=== PATIENT | male | born 1945 | race Caucasian/White ===

== ENCOUNTER 2019-07-29 05:45 | Day surgery (SDC) | payer MEDICARE, OTHER ==
[2019-07-26 11:30] LABS: BASOPHILS % (AUTO) 0.7 % (0-1); EOSINOPHILS # (AUTO) 0.2 X10'3 (0-0.9); EOSINOPHILS % (AUTO) 3.2 % (0-6); HEMATOCRIT 43.3 % (42.0-52.0); HEMOGLOBIN 14.8 g/dl (14.0-17.9); LYMPHOCYTES # (AUTO) 2.1 X10'3 (1.1-4.8); LYMPHOCYTES % (AUTO) 38.8 % (21-51); MEAN CORPUSCULAR HEMOGLOBIN 31.8 PG (27.0-31.0); MEAN CORPUSCULAR HGB CONC 34.3 g/dL (33.0-36.5); MEAN CORPUSCULAR VOLUME 92.8 FL (78-98); MEAN PLATELET VOLUME 7.7 FL (7.4-10.4); MONOCYTES # (AUTO) 0.6 X10'3 (0-0.9); MONOCYTES % (AUTO) 10.6 % (2-12); NEUTROPHILS # (AUTO) 2.6 X10'3 (1.8-7.7); NEUTROPHILS % (AUTO) 46.7 % (42-75); PLATELET COUNT 267 X10'3 (140-440); RED BLOOD COUNT 4.67 X10'6 (4.70-6.10); RED CELL DISTRIBUTION WIDTH 13.1 % (11.5-14.5); WHITE BLOOD COUNT 5.5 X10'3 (4.5-11.0)
[2019-07-26 11:41] LABS: ALBUMIN 3.8 G/DL (3.4-5.0); ANION GAP 7 (8-16); BLOOD UREA NITROGEN 14 MG/DL (7-18); BUN/CREATININE RATIO 13.6 (5.4-32.0); CALCIUM 9.1 MG/DL (8.5-10.1); CHLORIDE 106 MMOL/L (99-107); CREATININE 1.03 MG/DL (0.60-1.10); GLUCOSE 106 MG/DL (70-104); POTASSIUM 4.5 MMOL/L (3.5-5.1); SODIUM 141 MMOL/L (135-145); TOTAL CARBON DIOXIDE 27.7 MMOL/L (24-32); eGFR 71 ML/MIN
[2019-07-26 11:42] LABS: PARTIAL THROMBOPLASTIN TIME 27 SECONDS (22-32)
[2019-07-29] VITALS (15 sets, daily range): BP systolic 101–154; BP diastolic 55–95
[~2019-07-29] VITALS: Ht 170.2 cm; Wt 97.0 kg
[2019-07-29] MEDS ORDERED: ASPI81TA30 PO (06:34)
[2019-07-29] MEDS ORDERED: METO-539 PO (06:34)
[2019-07-29] MEDS ORDERED: SALMON PO (06:34)
[2019-07-29] MEDS ORDERED: LOVA20TA2 PO (06:34)
[2019-07-29] MEDS ORDERED: LOSA1TAB36 PO (06:34)
[2019-07-29] MEDS ORDERED: fentaNYL/PF 50MCG/1 ML 2ML syringe ONE (07:37)
[2019-07-29] MEDS ORDERED: midazolam 2 mg/2 ml injection ONE (07:37)
[2019-07-29] MEDS ORDERED: LIDOcaine 1% (10mg/ml)w/preservative injection 20ml MDV ONE (07:37)
[2019-07-29] MEDS ORDERED: iohexol 350 MG/ML 50ML vial IV ONE (07:37)
[2019-07-29] MEDS ORDERED: iohexol 350MG/ML 100ml bottle IV ONE ×4 (07:37→09:29)
[2019-07-29] MEDS ORDERED: heparin 1,000unit/ml 10ml vial 10 ML ONE (07:37)
[2019-07-29] MEDS ORDERED: nitroGLYCERIN-Tridil 50MG/D5W 250 ML IV ONE (07:37)
[2019-07-29] MEDS ORDERED: heparin 25,000 UNIT/250ml bag 250 ML IV ONE (08:37)
[2019-07-29] MEDS ORDERED: verapamil 2.5 mg/ml inj IV ONE (09:46)
[2019-07-29] MEDS ORDERED: clopidogrel 300mg tablet ONE (09:52)
--- NOTE | 2019-07-29 10:30 | NUR ---
Patient back from [facility] laboratory. Awake and alert. vss. Sheath in right groin, no bleeding or hematoma. Waveform good when transduced. Pt c/o of mild chest discomfort, declines pain medications. Heparin gtt running at 10 units/hr to left wrist.
[2019-07-29] MEDS ORDERED: aspirin 81mg tablet.DR PO SCH (11:24)
[2019-07-29] MEDS ORDERED: cyclobenzaprine 10mg tablet PO PRN (11:25)
[2019-07-29] MEDS ORDERED: HYDROcodone/acetaminophen 10/325mg tab PO PRN ×2 (11:25)
[2019-07-29] MEDS ORDERED: proCHLORperazine 10 MG/2 ml inj IV PRN (11:25)
[2019-07-29] MEDS ORDERED: CLOPIDOGREL BISULFATE 300MG TAB PO ONE (11:25)
[2019-07-29] MEDS ORDERED: normal saline 1000ml 1,000 ML IV SCH (11:25)
[2019-07-29] MEDS ORDERED: acetaminophen 325mg tablet PO PRN (11:25)
[2019-07-29] MEDS ORDERED: magnesium hydroxide 30ml (MOM) UD suspension PO PRN (11:25)
[2019-07-29] MEDS ORDERED: OXAZEpam 15mg capsule PO PRN (11:25)
[2019-07-29] MEDS ORDERED: heparin 25,000 UNIT/250ml bag 250 ML IV SCH (11:26)
[2019-07-29] MEDS ORDERED: heparin 10,000 units/1 ML INJ IV PRN (11:30)
[2019-07-29] MEDS ORDERED: heparin 10,000 units/1 ML INJ IV ONE (11:30)
[2019-07-29] MEDS ORDERED: docusate sod 100mg capsule PO SCH (20:00)
[2019-07-30] MEDS ORDERED: clopidogrel 75mg tablet PO SCH (08:00)
== END 2019-07-29 20:30 | disposition home or self-care (01) ==
LOC: SSTAY O 05:45
PROVIDERS: ATTEND Internal Medicine Cardiovascular Disease
DX: R07.89 Other chest pain (principal); R53.83 Other fatigue; I25.10 Atherosclerotic heart disease of native coronary artery without angina pectoris; E78.49 Other hyperlipidemia; I10 Essential (primary) hypertension; Z95.1 Presence of aortocoronary bypass graft; Z79.899 Other long term (current) drug therapy; Z79.82 Long term (current) use of aspirin
CPT/HCPCS: 36415; 80048; 85025; 85347; 85610; 85730; 93005; 93459; 99152; 99153; C1725; C1769; C1874; C9600; C9604; J1644; J2001; J2250; J3010; J7030; J7040; Q9967; A4620; A6258; A6449; C1760; J3490

== ENCOUNTER 2020-12-02 06:06 | Day surgery (SDC) | payer MEDICARE, OTHER ==
[2020-12-01 11:19] LABS: BASOPHILS % (AUTO) 0.7 % (0-1); EOSINOPHILS # (AUTO) 0.3 X10'3 (0-0.9); HEMATOCRIT 44.5 % (42.0-52.0); HEMOGLOBIN 14.8 g/dl (14.0-17.9); LYMPHOCYTES # (AUTO) 1.9 X10'3 (1.1-4.8); LYMPHOCYTES % (AUTO) 36.5 % (21-51); MEAN CORPUSCULAR HEMOGLOBIN 31.2 PG (27.0-31.0); MEAN CORPUSCULAR HGB CONC 33.2 g/dL (33.0-36.5); MEAN CORPUSCULAR VOLUME 94.1 FL (78-98); MEAN PLATELET VOLUME 7.4 FL (7.4-10.4); MONOCYTES # (AUTO) 0.7 X10'3 (0-0.9); MONOCYTES % (AUTO) 13.2 % (2-12); NEUTROPHILS # (AUTO) 2.3 X10'3 (1.8-7.7); NEUTROPHILS % (AUTO) 44.6 % (42-75); PLATELET COUNT 269 X10'3 (140-440); RED BLOOD COUNT 4.73 X10'6 (4.70-6.10); RED CELL DISTRIBUTION WIDTH 13.2 % (11.5-14.5); WHITE BLOOD COUNT 5.1 X10'3 (4.5-11.0)
[2020-12-01 11:32] LABS: ALBUMIN 3.5 G/DL (3.4-5.0); ANION GAP 8 (8-16); BLOOD UREA NITROGEN 18 MG/DL (7-18); BUN/CREATININE RATIO 20.2 (5.4-32.0); CALCIUM 8.9 MG/DL (8.5-10.1); CHLORIDE 108 MMOL/L (99-107); CREATININE 0.89 MG/DL (0.60-1.10); GLUCOSE 103 MG/DL (70-104); POTASSIUM 4.2 MMOL/L (3.5-5.1); SODIUM 142 MMOL/L (135-145); TOTAL CARBON DIOXIDE 26.2 MMOL/L (24-32); eGFR 83 ML/MIN
[2020-12-01 11:34] LABS: PARTIAL THROMBOPLASTIN TIME 27 SECONDS (22-32)
[2020-12-02] VITALS (13 sets, daily range): BP systolic 111–166; BP diastolic 62–96
[~2020-12-02] VITALS: Ht 170.2 cm; Wt 96.7 kg
[~2020-12-02 06:06] MED LIST: ASPI81TA30 PO; LOSA1TAB36 PO; LOVA20TA2 PO; METO-539 PO; SALMON PO
[2020-12-02] MEDS ORDERED: CLOP75TA34 PO (06:30)
[2020-12-02] MEDS ORDERED: LOSA50TA64 PO (06:30)
[2020-12-02] MEDS ORDERED: ATOR80TA PO (06:30)
[2020-12-02] MEDS ORDERED: LORazepam 0.5 MG tablet PO PRN (06:40)
[2020-12-02] MEDS ORDERED: diphenhydrAMINE 25mg capsule PO PRN (06:40)
[2020-12-02] MEDS ORDERED: normal saline 1,000 ML IV SCH (07:10)
[2020-12-02] MEDS ORDERED: LIDOcaine 1% (10mg/ml)w/preservative injection 20ml MDV ONE (07:29)
[2020-12-02] MEDS ORDERED: nitroGLYCERIN-Tridil 50MG/D5W 250 ML IV ONE (07:29)
[2020-12-02] MEDS ORDERED: midazolam 1 mg/ML 2ml injection ONE (07:29)
[2020-12-02] MEDS ORDERED: iohexol 350 MG/ML 50ML vial IV ONE (07:29)
[2020-12-02] MEDS ORDERED: fentaNYL/PF 50MCG/1 ML 2ML syringe ONE (07:29)
[2020-12-02] MEDS ORDERED: iohexol 350MG/ML 100ml bottle IV ONE ×2 (07:29→08:24)
[2020-12-02] MEDS ORDERED: heparin 1,000unit/ml 10ml vial 10 ML ONE (07:29)
[2020-12-02] MEDS ORDERED: heparin 25,000 UNIT/250ml bag 250 ML IV ONE (08:33)
[2020-12-02] MEDS ORDERED: clopidogrel 300mg tablet ONE (09:09)
[2020-12-02] MEDS ORDERED: normal saline 1,000 ML IV ONE (09:48)
[2020-12-02] MEDS ORDERED: HYDROcodone/acetaminophen 5mg/325mg tablet PO PRN (09:55)
[2020-12-02] MEDS ORDERED: HYDROcodone/acetaminophen 10/325mg tab PO PRN (09:55)
--- NOTE | 2020-12-02 12:10 | NUR ---
Pt voided 250ml yellow, clear
[2020-12-02] MEDS ORDERED: ondansetron/PF 4mg/2ml inj IV PRN (13:45)
--- NOTE | 2020-12-02 14:00 | NUR ---
Pt complaint of nausea. Pt repositioned and contacted MD for zofran order. Medication administered as ordered.
[2020-12-02] MEDS ORDERED: normal saline 1000ml 1,000 ML IV ONE (14:05)
[2020-12-02] MEDS ORDERED: proCHLORperazine 10 MG/2 ml inj IV PRN (14:10)
--- NOTE | 2020-12-02 15:58 | NUR ---
Pt voided 350 ml yellow, clear
[2020-12-03] MEDS ORDERED: clopidogrel 75mg tablet PO SCH (08:00)
== END 2020-12-02 18:10 | disposition home or self-care (01) ==
LOC: SSTAY O 06:06
PROVIDERS: ATTEND Internal Medicine Cardiovascular Disease
DX: I25.810 Atherosclerosis of coronary artery bypass graft(s) without angina pectoris (principal); I10 Essential (primary) hypertension; E78.5 Hyperlipidemia, unspecified; Z95.5 Presence of coronary angioplasty implant and graft
CPT/HCPCS: 36415; 76937; 80048; 85025; 85347; 85610; 85730; 93005; 93459; 93567; 99152; 99153; C1725; C1751; C1760; C1769; C1874; C9600; J0780; J1644; J2001; J2250; J2405; J3010; J7030; J7040; Q0163; Q9967; A4620; A6258; J3490

== ENCOUNTER 2020-12-04 13:33 | Emergency (ER) | payer MEDICARE, OTHER ==
[~2020-12-04] VITALS: Ht 170.2 cm; Wt 95.0 kg
[~2020-12-04 13:33] MED LIST changes: +ATOR80TA PO; +CLOP75TA34 PO; -LOSA1TAB36 PO; +LOSA50TA64 PO; -LOVA20TA2 PO
[2020-12-04 17:05] VITALS: BP 139/74
== END 2020-12-04 17:06 | disposition home or self-care (01) ==
LOC: ER 13:34
DX: S30.1XXA Contusion of abdominal wall, initial encounter (principal); I25.10 Atherosclerotic heart disease of native coronary artery without angina pectoris; Z79.82 Long term (current) use of aspirin; Z79.899 Other long term (current) drug therapy; X58.XXXA Exposure to other specified factors, initial encounter; Y93.89 Activity, other specified; Y92.89 Other specified places as the place of occurrence of the external cause; Y99.8 Other external cause status
CPT/HCPCS: 93926; 99284

== ENCOUNTER 2022-01-26 08:24 | Day surgery (SDC) | payer MEDICARE, OTHER ==
[2022-01-25 11:22] LABS: BASOPHILS % (AUTO) 0.6 % (0-1); EOSINOPHILS # (AUTO) 0.3 X10'3 (0-0.9); EOSINOPHILS % (AUTO) 5.7 % (0-6); HEMOGLOBIN 14.4 g/dl (14.0-17.9); LYMPHOCYTES # (AUTO) 1.6 X10'3 (1.1-4.8); LYMPHOCYTES % (AUTO) 28.7 % (21-51); MEAN CORPUSCULAR HGB CONC 33.5 g/dL (33.0-36.5); MEAN CORPUSCULAR VOLUME 92.5 FL (78-98); MEAN PLATELET VOLUME 8.1 FL (7.4-10.4); MONOCYTES # (AUTO) 0.6 X10'3 (0-0.9); MONOCYTES % (AUTO) 11.9 % (2-12); NEUTROPHILS # (AUTO) 2.9 X10'3 (1.8-7.7); NEUTROPHILS % (AUTO) 53.1 % (42-75); PLATELET COUNT 217 X10'3 (140-440); RED BLOOD COUNT 4.65 X10'6 (4.70-6.10); RED CELL DISTRIBUTION WIDTH 13.4 % (11.5-14.5); WHITE BLOOD COUNT 5.5 X10'3 (4.5-11.0)
[2022-01-25 11:39] LABS: APTT 27 SECONDS (22-32)
[2022-01-25 11:53] LABS: ALBUMIN 3.6 G/DL (3.4-5.0); ANION GAP 9 (8-16); BLOOD UREA NITROGEN 13 MG/DL (7-18); BUN/CREATININE RATIO 14.6 (5.4-32.0); CALCIUM 9.1 MG/DL (8.5-10.1); CHLORIDE 107 MMOL/L (99-107); CREATININE 0.89 MG/DL (0.60-1.10); GLUCOSE 100 MG/DL (70-104); POTASSIUM 4.2 MMOL/L (3.5-5.1); SODIUM 143 MMOL/L (135-145); TOTAL CARBON DIOXIDE 27.5 MMOL/L (24-32); eGFR 83 ML/MIN
[~2022-01-26] VITALS: Ht 170.2 cm; Wt 92.6 kg
[2022-01-26] VITALS (11 sets, daily range): BP systolic 104–147; BP diastolic 58–92
[2022-01-26] MEDS ORDERED: NITR0.4T48 (09:06)
[2022-01-26] MEDS ORDERED: LORazepam 0.5 MG tablet PO PRN (09:30)
[2022-01-26] MEDS ORDERED: diphenhydrAMINE 25mg capsule PO PRN (09:30)
[2022-01-26] MEDS ORDERED: normal saline 1,000 ML IV SCH (09:30)
[2022-01-26] MEDS ORDERED: LIDOcaine/PRILOcaine 5gm cream TP ONE (09:45)
[2022-01-26] MEDS ORDERED: verapamil 2.5 mg/ml inj IV ONE (11:54)
[2022-01-26] MEDS ORDERED: nitroGLYCERIN-Tridil 50MG/D5W 250 ML IV ONE (11:54)
[2022-01-26] MEDS ORDERED: midazolam 1 mg/ML 2ml injection ONE (11:55)
[2022-01-26] MEDS ORDERED: fentaNYL/PF 50MCG/1 ML 2ML syringe ONE (11:55)
[2022-01-26] MEDS ORDERED: heparin 1,000unit/ml 10ml vial 10 ML ONE (11:55)
[2022-01-26] MEDS ORDERED: LIDOcaine 1% 30ml preserv. free vial ONE (11:55)
[2022-01-26] MEDS ORDERED: iohexol 350MG/ML 100ml bottle IV ONE ×3 (11:55→13:53)
[2022-01-26] MEDS ORDERED: heparin 25,000 UNIT/250ml bag 250 ML IV ONE (13:38)
[2022-01-26] MEDS ORDERED: clopidogrel 300mg tablet ONE (14:20)
== END 2022-01-26 20:05 | disposition home or self-care (01) ==
LOC: SSTAY O 08:24
PROVIDERS: ATTEND Internal Medicine Cardiovascular Disease
DX: R94.39 Abnormal result of other cardiovascular function study (principal); I25.810 Atherosclerosis of coronary artery bypass graft(s) without angina pectoris; I35.0 Nonrheumatic aortic (valve) stenosis; I10 Essential (primary) hypertension; E78.5 Hyperlipidemia, unspecified; M10.9 Gout, unspecified; E66.9 Obesity, unspecified; Z68.32 Body mass index [BMI] 32.0-32.9, adult; Z79.01 Long term (current) use of anticoagulants; Z79.82 Long term (current) use of aspirin; Z79.899 Other long term (current) drug therapy; Z87.891 Personal history of nicotine dependence; Z82.3 Family history of stroke
CPT/HCPCS: 36415; 76937; 80048; 85025; 85347; 85610; 85730; 92920; 93005; 93459; 99152; 99153; C1725; C1751; C1769; C1894; J1644; J2250; J3010; J3490; J7030; Q0163; Q9967; A4620; A5120; A6258; A6402

== ENCOUNTER 2024-01-12 09:36 | Day surgery (SDC) | payer MEDICARE, OTHER ==
[2024-01-11 10:14] LABS: BASOPHILS % (AUTO) 0.7 % (0-1); EOSINOPHILS # (AUTO) 0.2 X10'3 (0-0.9); EOSINOPHILS % (AUTO) 3.5 % (0-6); HEMATOCRIT 43.3 % (42.0-52.0); HEMOGLOBIN 14.2 g/dl (14.0-17.9); LYMPHOCYTES # (AUTO) 1.7 X10'3 (1.1-4.8); LYMPHOCYTES % (AUTO) 30.4 % (21-51); MEAN CORPUSCULAR HEMOGLOBIN 28.5 PG (27.0-31.0); MEAN CORPUSCULAR HGB CONC 32.8 g/dL (33.0-36.5); MEAN CORPUSCULAR VOLUME 86.8 FL (78-98); MEAN PLATELET VOLUME 7.7 FL (7.4-10.4); MONOCYTES # (AUTO) 0.6 X10'3 (0-0.9); MONOCYTES % (AUTO) 11.9 % (2-12); NEUTROPHILS # (AUTO) 2.9 X10'3 (1.8-7.7); NEUTROPHILS % (AUTO) 53.5 % (42-75); PLATELET COUNT 252 X10'3 (140-440); RED BLOOD COUNT 4.99 X10'6 (4.70-6.10); RED CELL DISTRIBUTION WIDTH 17.8 % (11.5-14.5); WHITE BLOOD COUNT 5.5 X10'3 (4.5-11.0)
[2024-01-11 10:24] LABS: ALBUMIN 3.6 G/DL (3.4-5.0); ANION GAP 9 (8-16); BLOOD UREA NITROGEN 11 MG/DL (7-18); BUN/CREATININE RATIO 12.8 (10.0-20.0); CALCIUM 8.9 MG/DL (8.5-10.1); CHLORIDE 105 MMOL/L (99-107); CREATININE 0.86 MG/DL (0.60-1.10); GLUCOSE 102 MG/DL (70-104); POTASSIUM 4.4 MMOL/L (3.5-5.1); SODIUM 138 MMOL/L (135-145); TOTAL CARBON DIOXIDE 24.1 MMOL/L (24-32); eGFR 86 ML/MIN
[2024-01-11 10:27] LABS: APTT 26 SECONDS (22-32); PROTHROMBIN TIME 10.5 SECONDS (9.0-12.0)
[~2024-01-12] VITALS: Ht 170.2 cm; Wt 90.0 kg
[2024-01-12] VITALS (10 sets, daily range): BP systolic 125–158; BP diastolic 68–87; PULSE 59–69; RESP 10–12; TEMP 98.2; O2SAT 96–99
[~2024-01-12 09:36] MED LIST changes: -ASPI81TA30 PO; -CLOP75TA34 PO; +NITR0.4T48 PO; +PANT-47 PO
[2024-01-12] MEDS: normal saline 1,000 ML IV SCH (09:55)
[2024-01-12] MEDS ORDERED: CLOP75TA34 PO (10:34)
[2024-01-12] MEDS ORDERED: METO-395 PO (10:34)
[2024-01-12] MEDS ORDERED: ISOS60TA71 PO (10:34)
[2024-01-12] MEDS: diphenhydrAMINE 25mg capsule PO PRN (10:54)
[2024-01-12] MEDS: LORazepam 0.5 MG tablet PO PRN (10:54)
[2024-01-12] MEDS ORDERED: nitroGLYCERIN 500mcg/5mL D5W 5 ML IV ONE ×2 (11:48→13:36)
[2024-01-12] MEDS ORDERED: iohexol 350 MG/ML 50ML vial IV ONE ×2 (11:48→13:30)
[2024-01-12] MEDS ORDERED: verapamil 2.5 mg/ml inj IV ONE (11:48)
[2024-01-12] MEDS ORDERED: iohexol 350MG/ML 100ml bottle IV ONE ×2 (11:48→13:11)
[2024-01-12] MEDS ORDERED: fentaNYL/PF 50MCG/1 ML 2ML syringe ONE (11:48)
[2024-01-12] MEDS ORDERED: LIDOcaine 1% 30ml preserv. free vial ONE (11:48)
[2024-01-12] MEDS ORDERED: midazolam 1 mg/ML 2ml injection ONE (11:48)
[2024-01-12] MEDS ORDERED: heparin 1,000unit/ml 10ml vial 10 ML ONE (11:48)
[2024-01-12] MEDS ORDERED: heparin 25,000 UNIT/250ml bag 250 ML IV ONE (13:11)
[2024-01-12] MEDS ORDERED: clopidogrel 300mg tablet ONE (13:41)
== END 2024-01-12 18:05 | disposition home or self-care (01) ==
LOC: SSTAY O 09:36
PROVIDERS: ATTEND Internal Medicine Cardiovascular Disease
DX: R94.39 Abnormal result of other cardiovascular function study (principal); I25.10 Atherosclerotic heart disease of native coronary artery without angina pectoris; T82.855A Stenosis of coronary artery stent, initial encounter; I10 Essential (primary) hypertension; E78.5 Hyperlipidemia, unspecified; Y83.8 Other surgical procedures as the cause of abnormal reaction of the patient, or of later complication, without mention of misadventure at the time of the procedure; Z79.01 Long term (current) use of anticoagulants; Z79.899 Other long term (current) drug therapy; M10.9 Gout, unspecified; E66.9 Obesity, unspecified; Z68.31 Body mass index [BMI] 31.0-31.9, adult
CPT/HCPCS: 36415; 76937; 80048; 85025; 85347; 85610; 85730; 92920; 93005; 93459; 99152; 99153; A6258; A6402; C1725; C1751; C1769; C1894; J1644; J2001; J2250; J3010; J3490; J7030; Q0163; Q9967; 93458

== ENCOUNTER 2024-12-18 10:26 | Day surgery (SDC) | payer MEDICARE, OTHER ==
[2024-12-17 11:20] LABS: BASOPHILS % (AUTO) 0.6 % (0-1); EOSINOPHILS # (AUTO) 0.2 X10'3 (0-0.9); EOSINOPHILS % (AUTO) 3.6 % (0-6); HEMATOCRIT 44.9 % (42.0-52.0); LYMPHOCYTES # (AUTO) 1.7 X10'3 (1.1-4.8); LYMPHOCYTES % (AUTO) 31.3 % (21-51); MEAN CORPUSCULAR HGB CONC 33.3 g/dL (33.0-36.5); MEAN CORPUSCULAR VOLUME 93.1 FL (78-98); MEAN PLATELET VOLUME 7.7 FL (7.4-10.4); MONOCYTES # (AUTO) 0.7 X10'3 (0-0.9); MONOCYTES % (AUTO) 12.2 % (2-12); NEUTROPHILS # (AUTO) 2.9 X10'3 (1.8-7.7); NEUTROPHILS % (AUTO) 52.3 % (42-75); PLATELET COUNT 245 X10'3 (140-440); RED BLOOD COUNT 4.83 X10'6 (4.70-6.10); RED CELL DISTRIBUTION WIDTH 13.5 % (11.5-14.5); WHITE BLOOD COUNT 5.5 X10'3 (4.5-11.0)
[2024-12-17 11:40] LABS: APTT 27 SECONDS (22-32)
[2024-12-17 11:41] LABS: ALBUMIN 3.7 G/DL (3.4-5.0); ANION GAP 9 (8-16); BLOOD UREA NITROGEN 17 MG/DL (7-18); BUN/CREATININE RATIO 14.9 (10.0-20.0); CALCIUM 8.8 MG/DL (8.5-10.1); CHLORIDE 106 MMOL/L (99-107); CREATININE 1.14 MG/DL (0.60-1.10); GLUCOSE 117 MG/DL (70-104); POTASSIUM 4.6 MMOL/L (3.5-5.1); SODIUM 140 MMOL/L (135-145); TOTAL CARBON DIOXIDE 24.8 MMOL/L (24-32); eGFR 62 ML/MIN
[2024-12-17 11:44] LABS: PROTHROMBIN TIME 10.3 SECONDS (9.0-12.0)
[~2024-12-18] VITALS: Ht 170.2 cm; Wt 91.4 kg
[2024-12-18] VITALS (10 sets, daily range): BP systolic 121–166; BP diastolic 70–85; PULSE 58–63; RESP 12–15; TEMP 97.9; O2SAT 94–98
[~2024-12-18 10:26] MED LIST changes: +ATOR-429 PO; -ATOR80TA PO; +CLOP75TA34 PO; +ISOS60TA71 PO; +METO-395 PO; -METO-539 PO; -PANT-47 PO
[2024-12-18] MEDS ORDERED: PANT-47 PO (10:44)
[2024-12-18] MEDS ORDERED: ASPI-611 PO (10:44)
--- NOTE | 2024-12-18 10:49 | ELECTROCARDIOGRAPH REPORT ---
[facility] Test Date: 2024-12-18 Test Time: 10:46:29 Pat Name: ANA MORRIS Department: [facility] Patient ID: [id number] Room: Gender: M [employer] Attendant: AGATHA : 1945 Requested By: YOLY HANDLEY Order Number: [id number] Reading MD: Dr. JESUS Handley Measurements Intervals Wheeler Rate: 59 P: 29 MN: 218 QRS: -38 QRSD: 95 T: 32 QT: 432 QTc: 428 Interpretive Statements Sinus rhythm Borderline prolonged MN interval Abnormal R-wave progression, late transition Inferior infarct, old Electronically Signed On 12-18-2024 17:37:[address] JESUS Handley Please click the below link to view image of tracing.
[2024-12-18] MEDS: normal saline 1,000 ML IV SCH (11:22)
[2024-12-18] MEDS: diphenhydrAMINE 25mg capsule PO PRN (11:22)
[2024-12-18] MEDS: LORazepam 0.5 MG tablet PO PRN (11:22)
[2024-12-18] MEDS ORDERED: iohexol 350 MG/ML 50ML vial IV ONE (11:32)
[2024-12-18] MEDS ORDERED: fentaNYL/PF 50MCG/1 ML 2ML syringe ONE (11:32)
[2024-12-18] MEDS ORDERED: verapamil 2.5 mg/ml inj IV ONE (11:32)
[2024-12-18] MEDS ORDERED: LIDOcaine 1% (10mg/ml) 2ml vial ONE (11:32)
[2024-12-18] MEDS ORDERED: midazolam 1 mg/ML 2ml injection ONE (11:32)
[2024-12-18] MEDS ORDERED: heparin 1,000unit/ml 10ml vial 10 ML ONE (11:33)
[2024-12-18] MEDS ORDERED: iohexol 350MG/ML 100ml bottle IV ONE (11:33)
[2024-12-18] MEDS ORDERED: nitroGLYCERIN 500mcg/5mL D5W 5 ML IV ONE (11:50)
[2024-12-18 13:03] LABS: ISTAT HGB ART 13.6 g/dl (14.0-17.9); ISTAT Hct ART 40 %PCV (42-52); ISTAT O2 SATURATION ARTERIAL 98 % (95-98); ISTAT SOURCE ART
[2024-12-18] MEDS ORDERED: normal saline 1000ml 1,000 ML IV SCH (13:45)
--- NOTE | 2024-12-18 16:40 | CARDIOLOGY REPORT ---
DATE OF SERVICE: 12/18/2024 DICTATING PHYSICIAN: JESUS Baca MD CARDIAC CATHETERIZATION GENDER: Male. AGE: 79 years. HEIGHT: 170 cm. WEIGHT: 91.4 kg. BODY SURFACE AREA: 2.03 m2. PRIMARY PHYSICIAN: Dr. Vandana Forbes at [place]. SENIOR MANAGER QUALITY ASSURANCE: JESUS Baca MD INDICATION: The patient is a 79-year-old male with a history of hypertension; hyperlipidemia; CAD, status post CABG x [address] Watson back in 2004. The patient at that time got CAAL to LAD, SVG to diagonal, SVG to ramus, and sequential SVG to PDA and posterolateral branches of the circumflex artery coming from the left side and SVG to acute marginal branch. Back in 2018, the patient had stenting of the distal circumflex 80% narrowing with a 2.5/15 Resolute [place] stent. Proximal circumflex had 80%, stented with 3.5/20 Resolute [place] stent, and was postdilated to 3.75 mm. Back in 11/2020, the patient had additional stenting of the mid distal circumflex with a 2.5 Resolute [place] stent bridging the prior two stents, postdilated to 2.7 mm. The patient in 01/2022 required angioplasty of the in-stent restenosis, of distal circumflex artery. In 12/2023, all his vein grafts were occluded and the patient had angioplasty of the OM4. No stenting was done. Now, the patient has been having excessive fatigue and shortness of breath and a myocardial perfusion scan showed proximal inferolateral reversible defect. After discussing risks, benefits, and alternative options, the patient underwent coronary angiography. Risks, benefits, and alternative options were discussed. Informed consent was obtained. The patient had an echocardiogram, mild to moderate MS. There was moderate aortic stenosis, aortic valve area of 1.2 cm2 with peak/mean gradient of 47/28 mmHg. PROCEDURE TECHNIQUE: The patient underwent left heart catheterization with left radial approach via a 6-Kiswahili left radial sheath. Post-procedure access site hemostasis secured with left radial band. The patient had a right heart catheterization from right antecubital approach via an 8-Kisw[place]ili sheath. Post-procedure access site hemostasis secured with manual compression. The patient tolerated the procedure well. COMPLICATIONS: None. PROCEDURES DONE: * Ultrasound-guided left radial artery visualization and access. * Left heart catheterization. * Right heart catheterization. * LVG. * Coronary cineangiography. * Graft cineangiography. * CAAL injection. * Conscious sedation of 60 minutes. FINDINGS: * HEMODYNAMICS: Aortic systolic 151, diastolic 73, mean 104 mmHg. LVEDP of 15 mmHg. There is a mean gradient of 25 mmHg across the aortic valve, aortic valve 1.46 cm2. * Cardiac output by thermodilution method is 4.7 L per minute. Cardiac index is 2.32 L per minute per m2. * Pulmonary: Right atrial mean 12 mmHg, RV 57/13 mmHg, PA 57/20 mmHg. * Pulmonary capillary wedge pressure of 17 mmHg. * Aortic oxygen saturation 98%. * Pulmonary artery oxygen saturation 66%. LEFT VENTRICULOGRAM: Overall left ventricular systolic function about 65%-70%. CORONARY CINEANGIOGRAPHY: Left main coronary artery is a large-caliber vessel arising from the left aortic sinus with mild luminal irregularities. LAD is 100% occluded proximally. The circumflex artery is a medium-caliber arising at the bifurcation of left main, courses through the left AV groove. Distal one-third of the circumflex artery is 100% occluded within the stent after OM3 OM1 is a very small vessel. OM2 and OM3 are 2.25 mm with mild luminal irregularities. Beyond that, circumflex is 100% occluded. RCA is 100% occluded proximally. GRAFTS: 5/6 grafts (all venous grafts) are occluded. Namely, SVG to diagonal is occluded, SVG to ramus is occluded, sequential SVG to posterolateral branch and PDA coming from the left is occluded, and SVG to acute marginal is occluded. Only 1/6 grafts patent. CAAL to LAD is patent. Normal distal anastomosis with mild luminal irregularities. SUMMARY: A 79-year-old male with LV ejection fraction of 65%-70%. LVEDP of 15 mmHg. Moderate mitral stenosis, There is a mean gradient of 25 mmHg across the aortic valve with aortic valve area of 1.46 cm2. Patient had [id number] mitral stenosis by echo. Pulmonary capillary wedge pressure of 17 mmHg. PA pressure of 57/20 mmHg. Left main normal. LAD 100% occluded. Distal circumflex 100% occluded after the OM3. RCA nondominant, RCA 100% occluded. Five out of 6 bypasses, all his vein grafts are occluded, namely SVG to diagonal occluded, SVG to ramus occluded, SVG to sequential, SVG to left ventricle, PDA and posterolateral branches coming from the left are occluded. SVG to acute marginal is occluded. 1/6 grafts is patent, namely CAAL to LAD patent. Earlier I said EF of 65%-70%. RECOMMENDATIONS: Continued aggressive coronary risk factor modification, namely low-fat, low-cholesterol diet, maintaining ideal body weight, keeping LDL less than 70 mg, 55-minute regular exercise program. Recommend EECP. Continue medical therapy. JESUS Baca MD TID: [id number] RECEIPT: [id number] ALINE/MIREILLE Copy EDWARD Acosta, [facility]
[2024-12-19 06:28] LABS: ISTAT HGB MIX 13.3 g/dl (14.0-17.9); ISTAT Hct MIX 39 %PCV (42-52); ISTAT O2 SATURATION MIX VENOUS 66 % (60-80); ISTAT SOURCE VEN
== END 2024-12-18 18:15 | disposition home or self-care (01) ==
LOC: SSTAY O 10:26
PROVIDERS: ATTEND Internal Medicine Cardiovascular Disease
DX: I25.10 Atherosclerotic heart disease of native coronary artery without angina pectoris (principal); I08.0 Rheumatic disorders of both mitral and aortic valves; I25.82 Chronic total occlusion of coronary artery; I25.2 Old myocardial infarction; M10.9 Gout, unspecified; I10 Essential (primary) hypertension; E78.5 Hyperlipidemia, unspecified; Z79.01 Long term (current) use of anticoagulants; Z79.899 Other long term (current) drug therapy
CPT/HCPCS: 36415; 80048; 82803; 85014; 85025; 85610; 85730; 93005; 93461; 99152; 99153; A6258; A6402; C1725; C1751; C1769; C1894; J1644; J2003; J2250; J3010; J3490; J7030; Q0163; Q9967; Z7610; 76937; 93460